=== PATIENT | female | born 1985 ===

== ENCOUNTER → 2018-08-19 | Outpatient (CLI) | payer OTHER ==
[2018-08-23 14:08] LABS: HPV 16 Negative (Negative); HPV 18 Negative (Negative); HPV OTHER HR TYPES Negative (Negative)
== END | disposition home or self-care (01) ==
LOC: LAB SHORT 15:20 → LAB 15:20
PROVIDERS: Nurse Practitioner Women's Health
DX: Z12.4 Encounter for screening for malignant neoplasm of cervix (principal); Z91.89 Other specified personal risk factors, not elsewhere classified; Z87.42 Personal history of other diseases of the female genital tract
CPT/HCPCS: 87624; G0123

== ENCOUNTER 2024-04-13 12:49 | Day surgery (SDC) | payer OTHER ==
[~2024-04-13] VITALS: Ht 172.5 cm; Wt 67.5 kg
[2024-04-13] VITALS (9 sets, daily range): BP systolic 112–138; BP diastolic 72–89
[~2024-04-13 12:49] MED LIST: CeFAZolin Sodium 2,000 MG in NS 100 ML IV SCH; Lactated Ringer's 1,000 ML IV SCH
[2024-04-13] MEDS ORDERED: ALBU90OI INH (14:23)
[2024-04-13] MEDS ORDERED: FIBERWELL2.5 GM PO (14:24)
[2024-04-13] MEDS ORDERED: THERA-D2000 UNIT PO (14:24)
[2024-04-13] MEDS ORDERED: DIM PLUS CDG C1 EACH PO (14:24)
[2024-04-13] MEDS ORDERED: Acerola C500 MG PO (14:24)
[2024-04-13] MEDS ORDERED: Milk Thistle175 M1 PO (14:25)
[2024-04-13] MEDS ORDERED: IMMUNE ESSENTI PO (14:25)
[2024-04-13] MEDS ORDERED: Bupivacaine 0.5% HCl 5 MG/ML 30MLVIAL ONE (14:25)
[2024-04-13] MEDS ORDERED: PROBIOTIC-PREB1 EACH PO (14:26)
[2024-04-13] MEDS ORDERED: propofoL 20 ML IV ONE (14:39)
[2024-04-13] MEDS ORDERED: FentaNYL Citrate 50 MCG/ML 2 ML Injection ONE (14:39)
[2024-04-13] MEDS ORDERED: Midazolam HCl 1MG / ML 2ML Vial ONE (14:39)
[2024-04-13] MEDS ORDERED: Sugammadex Sodium 200 MG/2ML SDV (100 MG/ML) ONE (14:44)
[2024-04-13] MEDS ORDERED: Rocuronium Bromide 10 MG/ML 5ML Injection IV ONE (14:44)
[2024-04-13] MEDS ORDERED: Ketorolac Tromethamine 30mg Vial ONE (15:07)
[2024-04-13] MEDS ORDERED: OxyCODONE 5 mg/Acetamin 325 mg TABLET PO PRN (16:00)
== END 2024-04-13 17:45 | disposition home or self-care (01) ==
LOC: ORSCMMR 12:49 → ORD 15:35 → ORSCMMR 15:35
PROVIDERS: Obstetrics & Gynecology
PROC: 0UT7FZZ Resection of Bilateral Fallopian Tubes, Via Natural or Artificial Opening With Percutaneous Endoscopic Assistance (ICD-10-PCS; principal; 2024-04-13 15:35)
DX: Z30.2 Encounter for sterilization (principal); J45.909 Unspecified asthma, uncomplicated; Z79.899 Other long term (current) drug therapy
CPT/HCPCS: 88302; A9270; J0690; J1885; J2250; J2704; J3010; J7120